=== PATIENT | male | born 1960 | race Caucasian/White ===

== ENCOUNTER 2019-04-14 05:51 | Emergency (ER) | payer OTHER ==
[~2019-04-14] VITALS: Ht 185.4 cm; Wt 113.4 kg
--- NOTE | 2019-04-14 05:51 | NUR ---
PT TAKEN TO BED 2
[2019-04-14] MEDS ORDERED: ASPIRIN 81 MG TAB.CHEW PO ONE (05:55)
[2019-04-14] MEDS ORDERED: ONDANSETRON 4 MG/2 ML VIAL IVP ONE (05:55)
[2019-04-14] MEDS ORDERED: NACL 0.9% 500 ML IV ONE (05:55)
--- NOTE | 2019-04-14 05:55 | NUR ---
Dr. Shetty examining patient.
[2019-04-14 05:57] VITALS: BP 150/100
--- NOTE | 2019-04-14 05:57 | NUR ---
58 Y/O MALE C/O OF CHEST PAIN STARTING FROM MID EPIGASTRIC REGION TO BACK. PAIN IS A 5/10 ACUTE, PRESSURE LIKE PAIN. PER PATIENT, " I FEEL DIZZINESS THIS MORNING AND THIS ALL STARTED ON SUNDAY." A/O X4 AND FOLLOWS COMMANDS; BREATHING IS UNLABORED AND SYMMETRICAL. PATIENT STATES HE HAS NAUSEA AND VOMITING. ERMD MADE AWARE OF STATUS. 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 PMH:HYPERTENSION; ASTHMA; HIGH CHOLESTEROL RX: LORATIDINE; ATORVASTATIN; METOPROLO; ASPIRIN NKDA
--- NOTE | 2019-04-14 06:05 | NUR ---
EKG PERFORMED AT BEDSIDE
[2019-04-14] MEDS ORDERED: METOPROLOL 50 MG TAB PO ONE (06:10)
--- NOTE | 2019-04-14 06:15 | NUR ---
PT MOVED TO ER BED 3
[2019-04-14 06:27] LABS: BASOPHILS # (AUTO) 0.1 K/uL (0.00-0.22); BASOPHILS % (AUTO) 1.1 % (0.0-2.0); EOSINOPHILS # (AUTO) 0.3 K/uL (0-0.4); EOSINOPHILS % (AUTO) 3.5 % (0.0-4.0); HEMATOCRIT 45.6 % (36-52); HEMOGLOBIN 15.1 g/dL (12.0-18.0); LYMPHOCYTES % (AUTO) 26.3 % (20.5-51.1); MEAN CORPUSCULAR HEMOGLOBIN 29 pg (27-31); MEAN CORPUSCULAR HGB CONC 33 g/dL (33-37); MEAN CORPUSCULAR VOLUME 88.8 fL (80-94); MONOCYTES # (AUTO) 0.5 K/uL (0.8-1.0); NEUTROPHILS # (AUTO) 4.7 K/uL (1.8-7.7); NEUTROPHILS % (AUTO) 62.1 % (42.2-75.2); PLATELET COUNT (AUTO) 288 K/uL (140-450); RED BLOOD CELL COUNT(AUTO) 5.14 MIL/uL (4.20-6.10); RED CELL DISTRIBUTION WIDTH 14.9 % (11.6-13.7); WHITE BLOOD COUNT (AUTO) 7.6 K/uL (4.8-10.8)
[2019-04-14 06:38] LABS: ANION GAP 11.4 (8-16); CARBON DIOXIDE 28.6 mmol/L (21-32); CREATININE 1.5 mg/dL (0.7-1.3)
[2019-04-14 06:54] LABS: TOTAL BILIRUBIN 0.4 mg/dL (0.0-1.0)
[2019-04-14 07:14] LABS: PROTHROMBIN TIME 9.7 secs (10.8-13.4)
--- NOTE | 2019-04-14 07:15 | NUR ---
Pt report given to AMRITA RAMSEY. Transfer of care at this time.
--- NOTE | 2019-04-14 08:07 | NUR ---
LAB AT BEDSIDE
[2019-04-14 08:58] VITALS: BP 127/81
--- NOTE | 2019-04-14 08:58 | NUR ---
IV removed, catheter intact and site benign. Applied folded 4x4 gauze and tape to stop bleeding.
--- NOTE | 2019-04-14 08:58 | NUR ---
Patient discharged with v/s stable. Written and verbal after care instructions given and explained. Patient verbalized understanding. Ambulatory with steady gait. All questions addressed prior to discharge. Advised to follow up with PMD.
--- NOTE | 2019-04-14 13:07 | NUR ---
Late entry. COnfirmed with RN that 0.9 NS IV 100ml/hr completed at 0855
== END 2019-04-14 08:58 | disposition home or self-care (01) ==
LOC: MED 05:51
DX: R07.9 Chest pain, unspecified (principal); I12.9 Hypertensive chronic kidney disease with stage 1 through stage 4 chronic kidney disease, or unspecified chronic kidney disease; N18.9 Chronic kidney disease, unspecified
CPT/HCPCS: 36415; 71045; 80053; 84484; 85025; 85610; 85730; 93005; 96361; 96374; 99284; J2405; Q0092; J7030